=== PATIENT | female | born 1970 | race Caucasian/White ===

== ENCOUNTER 2016-09-25 07:58 | Emergency (ER) | payer OTHER ==
[2016-09-25 08:09] VITALS: BP 124/62; PULSE 68; RESP 18; TEMP 98; O2SAT 98
[2016-09-25 09:04] LABS: COLOR YELLOW; LEUKOCYTE ESTERASE,URINE TRACE (NEGATIVE); NITRITE,URINE NEGATIVE (NEGATIVE)
[2016-09-25 09:20] LABS: RBC,URINE 0-1 /hpf (0-3)
[2016-09-25 09:21] LABS: BACTERIA TRACE /hpf (NONE SEEN)
[2016-09-25] MEDS ORDERED: CEPHALEXIN 500MG PREPACK#4 BTL TAKEHOME ONE (09:30)
[2016-09-25] MEDS ORDERED: PHENAZOPYRIDINE HCL 200 MG TAB PO ONE (09:31)
--- NOTE | 2016-09-25 09:31 | UCPHY ---
H & P Time Seen by Provider: 09/25/16 08:03 Patient Type: New HPI/ROS: 46-year-old female presents complaining of frequent urination with burning. Review of systems General no fever no chills no weakness HEENT no eye pain no eye discharge. No eye redness, no sore throat Respiratory no cough, no shortness of breath Cardiac no chest pain, no peripheral edema GI no abdominal pain, no diarrhea, no constipation, no nausea, no vomiting no flank pain, no hematuria, positive dysuria Musculoskeletal no myalgias, no joint pain Heme no easy bruising, no easy bleeding Endo no polyuria, no polydipsia Skin no rashes, no pruritus Neuro no syncope, no dizziness, no headaches Psych is no suicidal ideation, no homicidal ideation Past Medical/Surgical History: On gabapentin Social History: Denies alcohol or drug use Smoking Status: Never smoked Physical Exam: 46-year-old female Female alert and oriented in no acute distress nontoxic appearance, afebrile Atraumatic normocephalic Neck supple Lungs clear to auscultation bilaterally Heart regular rate and rhythm Abdomen normoactive bowel sounds soft mild suprapubic tenderness no guarding no rebound Back no CVA tenderness Extremities no cyanosis clubbing or edema Skin no rash Constitutional: Initial Vital Signs Temperature (C) 36.6 C 09/25/16 08:07 Heart Rate 68 09/25/16 08:07 Respiratory Rate 18 09/25/16 08:07 Blood Pressure 124/62 H 09/25/16 08:07 O2 Sat (%) 98 09/25/16 08:07 O2 Delivery Mode Room Air Allergies/Adverse Reactions: perfume Allergy (Verified 11/13/15 18:34) PERFUME Allergy (Severe, Uncoded 11/13/15 18:34) Wheezing;Rash; Home Medications: Medication Instructions Recorded Cephalexin 500 mg PO BID #14 tablet 09/25/16 GABAPENTIN 09/25/16 Phenazopyridine HCl 200 mg PO TID #6 tab 09/25/16 [Phenazopyridine] Medical Decision Making ED Course/Re-evaluation: Patient seen and evaluated for dysuria Impression UTI Plan Cephalexin phenazopyridine follow-up primary care physician - Data Points Laboratory Results: 09/25/16 08:40 Urine Color YELLOW Urine Appearance CLEAR Urine pH 7.0 (5.0-7.5) Ur Specific [place] 1.010 (1.002-1.030) Urine Protein NEGATIVE (NEGATIVE) Urine Ketones NEGATIVE (NEGATIVE) Urine Blood NEGATIVE (NEGATIVE) Urine Nitrate NEGATIVE (NEGATIVE) Urine Bilirubin NEGATIVE (NEGATIVE) Urine Urobilinogen 0.2 EU (0.2-1.0) Ur Leukocyte Esterase TRACE H (NEGATIVE) Urine RBC 0-1 /hpf (0-3) Urine WBC 10-15 H /hpf (0-3) Ur Epithelial Cells TRACE /lpf (NONE-1+) Urine Bacteria TRACE H /hpf (NONE SEEN) Urine Glucose NEGATIVE (NEGATIVE) Medications Given: Discontinued Medications Cephalexin (Keflex 500 Mg Prepack#4) 1 btl TAKEHOME EDNOW ONE PRN Reason: Protocol Stop: 09/25/16 09:31 Last Admin: 09/25/16 09:37 Dose: 1 btl Phenazopyridine HCl (Pyridium) 200 mg PO EDNOW ONE Stop: 09/25/16 09:32 Last Admin: 09/25/16 09:38 Dose: 200 mg Departure - Departure Disposition: Home, Routine, Self-Care Clinical Impression: Urinary tract infection Condition: Good Instructions: Urinary Tract Infection in Women (ED) Referrals: NONE *PRIMARY CARE P,. [Primary Care Provider] - As per Instructions Prescriptions: Cephalexin 500 mg PO BID #14 tablet Phenazopyridine HCl [Phenazopyridine] 200 mg PO TID #6 tab - PQRS PQRS Measurement: na
== END 2016-09-25 09:36 | disposition home or self-care (01) ==
LOC: CED 07:58
DX: N39.0 Urinary tract infection, site not specified (principal)
CPT/HCPCS: 81003-PO; 81015-PO; G0463-PO

== ENCOUNTER → 2018-06-25 | Outpatient (CLI) | payer OTHER | LOC: BMCIMAGING 10:59 | PROVIDERS: ATTEND Family Medicine | DX: J98.4 Other disorders of lung (principal) ==

== ENCOUNTER → 2018-12-20 | Outpatient (CLI) | payer OTHER ==
[~2018-12-20] MED LIST: GADOBUTROL 10 ML VIAL IVP ONE
== END ==
LOC: FIMAGING 09:43
PROVIDERS: ATTEND Physician Assistant Medical
DX: G96.0 Cerebrospinal fluid leak (principal); R51 Headache
CPT/HCPCS: A9585

== ENCOUNTER → 2018-12-23 | Outpatient (CLI) | payer OTHER | LOC: FIMAGING 14:32 | PROVIDERS: ATTEND Physician Assistant Medical | DX: E87.79 Other fluid overload (principal); M48.02 Spinal stenosis, cervical region | CPT/HCPCS: A9585 ==

== ENCOUNTER → 2019-01-18 | Outpatient (CLI) | payer OTHER | LOC: BMCIMAGING 15:41 | PROVIDERS: ATTEND Family Medicine | DX: Z01.818 Encounter for other preprocedural examination (principal) ==